=== PATIENT | female | born 1995 | race Caucasian/White ===

== ENCOUNTER 2022-03-19 06:04 | Inpatient (IN) ==
[2022-03-19] MEDS ORDERED: *HR* Nalbuphine 10 MG/ML AMPUL IV PRN (06:16)
[2022-03-19] MEDS ORDERED: Naloxone 0.4 MG/ML INJ IVP PRN (06:16)
[2022-03-19] MEDS ORDERED: Ondansetron 4 MG/2 ML VIAL IVP PRN (06:16)
[2022-03-19] MEDS ORDERED: Famotidine 20 MG/2 ML VIAL IVP PRN (06:16)
[2022-03-19] MEDS ORDERED: Azithromycin 500 MG in 0.9 % Sodium Chloride 250 ML IVPB PRN (06:16)
[2022-03-19] MEDS ORDERED: miSOPROStoL 25 MCG TABLET PO PRN (06:16)
[2022-03-19] MEDS ORDERED: Lidocaine 1% 20 ML MDV INFILT PRN (06:16)
[2022-03-19] MEDS ORDERED: Metoclopramide 10 MG/2 ML VIAL IVP PRN (06:16)
[2022-03-19] MEDS ORDERED: Ringers Solution, Lactated 1,000 ML IVC SCH (06:30)
[2022-03-19] MEDS ORDERED: EPHEDrine 50 MG/ML VIAL IVP PRN (07:05)
[2022-03-19] MEDS ORDERED: Epidural Premix (fent/bupiv) 110 ML EP SCH (07:15)
[2022-03-19 07:17] LABS: Basophils % 0.3 %; Eosinophils # 0.2 K/mcL (0.0-0.6); Hematocrit 41.6 % (35.3-44.9); Hemoglobin 13.6 g/dL (11.5-15.4); Immature Granulocytes % 0.5 % (0-4); Lymphocytes # 2.7 K/mcL (0.6-4.6); Lymphocytes % 24.3 %; Mean Corpuscular HGB Conc 32.7 g/dL (31.6-35.5); Mean Corpuscular Hemoglobin 28.5 pg (28.0-33.3); Mean Platelet Volume 10.8 fL (9.4-12.4); Monocytes # 0.8 K/mcL (0.0-1.3); Monocytes % 6.9 %; Neutrophils # 7.3 K/mcL (1.6-8.9); Platelet Count 240 K/mcL (140-400); Red Blood Count 4.78 M/mcL (3.82-4.97); Red Cell Distribution Width 14.1 % (11.5-14.5); White Blood Count 11.1 K/mcL (4.3-11.1)
[2022-03-19 08:32] LABS: Amphetamine Screen,Urine Negative ng/mL (Cutoff=1000); Barbiturate Screen,Urine Negative ng/mL (Cutoff=200); Benzodiazepines Screen,Urine Negative ng/mL (Cutoff=200); Cannabinoid Screen,Urine Negative ng/mL (Cutoff = 50); Cocaine Screen,Urine Negative ng/mL (Cutoff= 300); Opiate Screen,Urine Negative ng/mL (Cutoff=300); Phencyclidine Screen,Urine Negative ng/mL (Cutoff=25)
[2022-03-19] MEDS: Oxytocin 30 UNIT/503 ML BAG IVC SCH ×2 (13:00→15:37)
[2022-03-19] MEDS ORDERED: Benzocaine/Menthol 56 GM AEROSOL SPRAY TP PRN (18:39)
[2022-03-19] MEDS ORDERED: Lanolin 7 G OINT...G. TP PRN (18:39)
[2022-03-19] MEDS ORDERED: Measles/Mumps/Rubella Vacc 0.5 ML VIAL SQ PRN (18:39)
[2022-03-19] MEDS ORDERED: Oxytocin 30 UNIT/503 ML BAG IVC SCH (18:39)
[2022-03-19] MEDS ORDERED: Rho Immune Globulin 1,500 UNIT SYRINGE IM PRN (18:39)
[2022-03-19] MEDS ORDERED: Ondansetron ODT 4 MG TAB.RAPDIS SL PRN (18:39)
[2022-03-19] MEDS: Acetaminophen 325 MG TABLET PO SCH (19:33)
[2022-03-19] MEDS: Ibuprofen 600 MG TABLET PO SCH (22:11)
[2022-03-20] MEDS: Ibuprofen 600 MG TABLET PO SCH ×2 (03:23→10:23)
[2022-03-20] MEDS: Acetaminophen 325 MG TABLET PO SCH ×3 (03:23→15:46)
[2022-03-20 04:09] LABS: Basophils % 0.2 %; Eosinophils # 0.2 K/mcL (0.0-0.6); Eosinophils % 1.4 %; Hematocrit 36.1 % (35.3-44.9); Immature Granulocytes % 0.5 % (0-4); Mean Corpuscular Hemoglobin 28.5 pg (28.0-33.3); Mean Corpuscular Volume 86.6 fL (83.0-100.0); Mean Platelet Volume 10.1 fL (9.4-12.4); Monocytes # 0.8 K/mcL (0.0-1.3); Monocytes % 6.7 %; Platelet Count 249 K/mcL (140-400); Red Blood Count 4.17 M/mcL (3.82-4.97); Segmented Neutrophils % 66.2 %; White Blood Count 12.1 K/mcL (4.3-11.1)
[2022-03-20 04:10] LABS: Hemoglobin 11.9 g/dL (11.5-15.4)
[2022-03-20 08:09] VITALS: BP 116/73; PULSE 80; TEMP 97.9; O2SAT 98
[2022-03-20] MEDS ORDERED: Prenatal Vit/FA 1 EACH TABLET PO SCH (09:00)
== END 2022-03-20 18:47 | disposition home or self-care (01) | DRG 560 ==
LOC: 1NENULAB 06:04 → 1NENUOBS 18:29
PROVIDERS: ADMIT Student in an Organized Health Care Education/Training Program; ATTEND Student in an Organized Health Care Education/Training Program